=== PATIENT | female | born 1955 | race Caucasian/White ===

== ENCOUNTER → 2016-09-22 | Outpatient (CLI) | payer MEDICARE, MEDICAID ==
[~2016-09-22] MED LIST: CO Q400C2 PO; IBUP800T23 PO; MULTCAP9 PO; OMEG10002 PO; SIMV40TA2 PO; ST J1CAP PO; VITA500C24 PO
[2016-09-22 09:37] LABS: ALBUMIN 3.9 GM/DL (3.2-5.2); ALBUMIN/GLOBULIN RATIO 1.22 (1.00-1.93); ALKALINE PHOSPHATASE 62 U/L (45-117); ALT/SGPT 31 U/L (12-78); ANION GAP 9 MEQ/L (8-16); AST/SGOT 25 U/L (15-37); BILIRUBIN,TOTAL 0.4 MG/DL (0.2-1.0); BLOOD UREA NITROGEN 13 MG/DL (7-18); CALCIUM LEVEL 8.9 MG/DL (8.8-10.2); CARBON DIOXIDE LEVEL 27 MEQ/L (21-32); CHLORIDE LEVEL 105 MEQ/L (98-107); CHOLESTEROL LEVEL 218 MG/DL (<200); CREATININE FOR GFR 0.79 MG/DL (0.55-1.02); GLOMERULAR FILTRATION RATE > 60.0 (>45); GLUCOSE, FASTING 101 MG/DL (80-110); POTASSIUM SERUM 4.6 MEQ/L (3.5-5.1); SODIUM LEVEL 141 MEQ/L (136-145); TOTAL PROTEIN 7.1 GM/DL (6.4-8.2); TRIGLYCERIDES LEVEL 54 MG/DL (<150)
== END ==
LOC: M WUC 08:09
PROVIDERS: ATTEND Physician Assistant
DX: E78.2 Mixed hyperlipidemia (principal)

== ENCOUNTER → 2016-11-14 | Outpatient (CLI) | payer MEDICARE, MEDICAID ==
[~2016-11-14] MED LIST changes: +LIDOCAINE 2% INJ 100 MG/5 ML SDV (FOR ANES.) As Ordered ONE; +NS 1,000 ML IV SCH; +PROPOFOL 200 MG/20 ML VIAL As Ordered ONE
--- NOTE | 2016-11-14 11:26 | ROOR ---
Patient Name: Maira Ortiz Procedure Date: 11/14/2016 11:00 AM Date of : 1955 Age: 61 Room: [facility] Gender: Female Note Status: Finalized Procedure: Colonoscopy Indications: High risk colon cancer surveillance: Personal history of sessile serrated colon polyp (10 mm or greater in size) Providers: Gerardo BA MD Referring MD: DAVID Gurrola PA-C Requesting Provider: Medicines: Monitored Anesthesia Care Complications: No immediate complications. Procedure: Pre-Anesthesia Assessment: - The heart rate, respiratory rate, oxygen saturations, blood pressure, adequacy of pulmonary ventilation, and response to care were monitored throughout the procedure. The Colonoscope was introduced through the anus and advanced to the cecum, identified by appendiceal orifice and ileocecal valve. The colonoscopy was performed without difficulty. The patient tolerated the procedure well. The quality of the bowel preparation was good. Findings: The perianal and digital rectal examinations were normal. A 7 mm polyp was found in the proximal sigmoid colon. The polyp was pedunculated. The polyp was removed with a cold snare. Resection and retrieval were complete. To prevent bleeding after the polypectomy, four hemostatic clips were successfully placed (MR conditional). There was no bleeding at the end of the procedure. Multiple medium-mouthed diverticula were found in the sigmoid colon. Small Internal Hemorrhoids. The exam was otherwise without abnormality on direct and retroflexion views. (Exam: Complete, Prep: Good or Excellent.) Impression: - One 7 mm polyp in the proximal sigmoid colon, removed with a cold snare. Resected and retrieved. Clips (MR conditional) were placed. - Moderate diverticulosis in the sigmoid colon. - Small Internal Hemorrhoids. - The examination was otherwise normal on direct and retroflexion views. Recommendation: - Repeat colonoscopy in 3 years for surveillance. - No ibuprofen, naproxen, or other non-steroidal anti-inflammatory drugs for 10 days after polyp removal. Gerardo Ba MD Gerardo BA MD 11/14/2016 11:25:44 AM This report has been signed electronically. Number of Addenda: 0 Note Initiated On: 11/14/2016 11:00 AM Estimated Blood Loss: Estimated blood loss: none.
[2016-11-14 11:45] VITALS: BP 123/71
== END ==
LOC: M OPP 09:41
PROVIDERS: ATTEND Internal Medicine Gastroenterology
DX: Z12.11 Encounter for screening for malignant neoplasm of colon (principal); Z86.010 Personal history of colon polyps; D12.5 Benign neoplasm of sigmoid colon; K57.30 Diverticulosis of large intestine without perforation or abscess without bleeding; K64.8 Other hemorrhoids; M19.90 Unspecified osteoarthritis, unspecified site; Z79.899 Other long term (current) drug therapy; Z88.5 Allergy status to narcotic agent; Z91.030 Bee allergy status

== ENCOUNTER → 2017-06-02 | Outpatient (CLI) | payer MEDICARE, MEDICAID ==
[~2017-06-02] MED LIST changes: +IBUP1TAB7 PO; -IBUP800T23 PO; -LIDOCAINE 2% INJ 100 MG/5 ML SDV (FOR ANES.) As Ordered ONE; -NS 1,000 ML IV SCH; -PROPOFOL 200 MG/20 ML VIAL As Ordered ONE; -ST J1CAP PO; +ST J300C15 PO
[2017-06-02 10:26] LABS: ALBUMIN 3.9 GM/DL (3.2-5.2); ALBUMIN/GLOBULIN RATIO 1.15 (1.00-1.93); ALKALINE PHOSPHATASE 57 U/L (45-117); ALT/SGPT 31 U/L (12-78); ANION GAP 6 MEQ/L (8-16); AST/SGOT 18 U/L (7-37); BILIRUBIN,TOTAL 0.4 MG/DL (0.2-1.0); BLOOD UREA NITROGEN 14 MG/DL (7-18); CALCIUM LEVEL 9.1 MG/DL (8.8-10.2); CARBON DIOXIDE LEVEL 28 MEQ/L (21-32); CHLORIDE LEVEL 106 MEQ/L (98-107); CHOLESTEROL LEVEL 247 MG/DL (<200); CREATININE FOR GFR 0.66 MG/DL (0.55-1.02); GLOMERULAR FILTRATION RATE > 60.0 (>45); GLUCOSE, FASTING 100 MG/DL (80-110); POTASSIUM SERUM 4.3 MEQ/L (3.5-5.1); SODIUM LEVEL 140 MEQ/L (136-145); TOTAL PROTEIN 7.3 GM/DL (6.4-8.2); TRIGLYCERIDES LEVEL 51 MG/DL (<150)
== END ==
LOC: M WUC 08:31
PROVIDERS: ATTEND Physician Assistant
DX: E78.2 Mixed hyperlipidemia (principal)

== ENCOUNTER → 2017-12-22 | Outpatient (CLI) | payer MEDICARE, MEDICAID ==
[2017-12-22 11:26] LABS: ALBUMIN 3.9 GM/DL (3.2-5.2); ALBUMIN/GLOBULIN RATIO 1.26 (1.00-1.93); ALKALINE PHOSPHATASE 55 U/L (45-117); ALT/SGPT 26 U/L (12-78); ANION GAP 5 MEQ/L (8-16); AST/SGOT 20 U/L (7-37); BILIRUBIN,TOTAL 0.5 MG/DL (0.2-1.0); BLOOD UREA NITROGEN 14 MG/DL (7-18); CARBON DIOXIDE LEVEL 28 MEQ/L (21-32); CHLORIDE LEVEL 108 MEQ/L (98-107); CHOLESTEROL LEVEL 200 MG/DL (<200); CREATININE FOR GFR 0.73 MG/DL (0.55-1.30); GLOMERULAR FILTRATION RATE > 60.0 (>45); GLUCOSE, FASTING 95 MG/DL (70-100); HDL CHOLESTEROL 80 MG/DL (>40); LDL CHOLESTEROL 110.8 MG/DL (<100); NON-HDL-C 120 MG/DL; POTASSIUM SERUM 4.3 MEQ/L (3.5-5.1); SODIUM LEVEL 141 MEQ/L (136-145); TRIGLYCERIDES LEVEL 46 MG/DL (<150)
== END ==
LOC: M WUC 08:34
DX: E78.2 Mixed hyperlipidemia (principal)
CPT/HCPCS: 80053

== ENCOUNTER → 2018-06-27 | Outpatient (CLI) | payer MEDICARE, MEDICAID ==
[2018-06-27 09:53] LABS: ALBUMIN 3.9 GM/DL (3.2-5.2); ALBUMIN/GLOBULIN RATIO 1.26 (1.00-1.93); ALKALINE PHOSPHATASE 61 U/L (45-117); ALT/SGPT 30 U/L (12-78); ANION GAP 7 MEQ/L (8-16); AST/SGOT 25 U/L (7-37); BILIRUBIN,TOTAL 0.3 MG/DL (0.2-1.0); BLOOD UREA NITROGEN 8 MG/DL (7-18); CALCIUM LEVEL 9.2 MG/DL (8.8-10.2); CARBON DIOXIDE LEVEL 28 MEQ/L (21-32); CHLORIDE LEVEL 104 MEQ/L (98-107); CHOLESTEROL LEVEL 170 MG/DL (<200); CHOLESTEROL RISK RATIO 2.741 (<5); CREATININE FOR GFR 0.78 MG/DL (0.55-1.30); GLOMERULAR FILTRATION RATE > 60.0 (>45); GLUCOSE, FASTING 101 MG/DL (70-100); HDL CHOLESTEROL 62 MG/DL (>40); LDL CHOLESTEROL 94 MG/DL (<100); NON-HDL-C 108 MG/DL; POTASSIUM SERUM 4.2 MEQ/L (3.5-5.1); SODIUM LEVEL 139 MEQ/L (136-145); TRIGLYCERIDES LEVEL 69 MG/DL (<150)
== END ==
LOC: M WUC 08:34
DX: E78.2 Mixed hyperlipidemia (principal)
CPT/HCPCS: 80053

== ENCOUNTER → 2019-02-28 | Outpatient (REF) | payer MEDICARE, MEDICAID | LOC: M SFHCLACO 15:56 | PROVIDERS: ATTEND Physician Assistant | DX: Z12.4 Encounter for screening for malignant neoplasm of cervix (principal); N95.2 Postmenopausal atrophic vaginitis | CPT/HCPCS: 87070; 87077; 87186; G0101; G0123 ==

== ENCOUNTER → 2019-05-09 | Outpatient (CLI) | payer MEDICARE, MEDICAID ==
[2019-05-09 10:49] LABS: ALBUMIN 3.7 GM/DL (3.2-5.2); ALT/SGPT 23 U/L (12-78); BILIRUBIN,TOTAL 0.4 MG/DL (0.2-1.0); BLOOD UREA NITROGEN 10 MG/DL (7-18); CALCIUM LEVEL 9.2 MG/DL (8.8-10.2); CARBON DIOXIDE LEVEL 29 MEQ/L (21-32); CHLORIDE LEVEL 105 MEQ/L (98-107); CHOLESTEROL LEVEL 214 MG/DL (<200); CHOLESTEROL RISK RATIO 2.252 (<5); CREATININE FOR GFR 0.72 MG/DL (0.55-1.30); GLOMERULAR FILTRATION RATE > 60.0 (>45); GLUCOSE, FASTING 85 MG/DL (70-100); HDL CHOLESTEROL 95 MG/DL (>40); LDL CHOLESTEROL 106 MG/DL (<100); NON-HDL-C 119 MG/DL; POTASSIUM SERUM 4.7 MEQ/L (3.5-5.1); SODIUM LEVEL 138 MEQ/L (136-145); TOTAL PROTEIN 7.4 GM/DL (6.4-8.2); TRIGLYCERIDES LEVEL 66 MG/DL (<150)
== END ==
LOC: M WUC 08:19
PROVIDERS: ATTEND Physician Assistant
DX: E78.2 Mixed hyperlipidemia (principal)

== ENCOUNTER → 2019-05-17 | Outpatient (CLI) | payer MEDICARE, MEDICAID | LOC: M RAD 09:18 | PROVIDERS: ATTEND Physician Assistant | DX: M54.2 Cervicalgia (principal) ==

== ENCOUNTER → 2020-10-07 | Outpatient (REF) | payer MEDICARE, MEDICAID ==
[~2020-10-07] MED LIST changes: -SIMV40TA2 PO; +SIMV40TA20 PO
[2020-10-07 18:25] LABS: ALBUMIN 4.1 GM/DL (3.2-5.2); ALT/SGPT 28 U/L (12-78); BILIRUBIN,TOTAL 0.3 MG/DL (0.2-1.0); BLOOD UREA NITROGEN 12 MG/DL (7-18); CALCIUM LEVEL 9.4 MG/DL (8.8-10.2); CARBON DIOXIDE LEVEL 28 MEQ/L (21-32); CHLORIDE LEVEL 106 MEQ/L (98-107); CHOLESTEROL LEVEL 223 MG/DL (<200); CHOLESTEROL RISK RATIO 2.009 (<5); GLOMERULAR FILTRATION RATE > 60.0 (>45); GLUCOSE, FASTING 95 MG/DL (70-100); HDL CHOLESTEROL 111 MG/DL (>40); LDL CHOLESTEROL 103 MG/DL (<100); NON-HDL-C 112 MG/DL; POTASSIUM SERUM 4.6 MEQ/L (3.5-5.1); SODIUM LEVEL 140 MEQ/L (136-145); TOTAL PROTEIN 7.3 GM/DL (6.4-8.2); TRIGLYCERIDES LEVEL 47 MG/DL (<150)
== END ==
LOC: M SFHCADAM 09:43
PROVIDERS: ATTEND Physician Assistant
DX: Z00.00 Encounter for general adult medical examination without abnormal findings (principal); E78.2 Mixed hyperlipidemia; E55.9 Vitamin D deficiency, unspecified

== ENCOUNTER → 2021-02-15 | Outpatient (CLI) | payer MEDICARE, MEDICAID ==
[~2021-02-15] MED LIST changes: +ST J300C2 PO; +VITMTA PO; +collagen peptides PO
== END ==
LOC: M LABSMTC 10:43
PROVIDERS: ATTEND Anesthesiology
DX: Z01.812 Encounter for preprocedural laboratory examination (principal); Z20.822 Contact with and (suspected) exposure to COVID-19

== ENCOUNTER → 2021-04-19 | Outpatient (REF) | payer MEDICARE, MEDICAID ==
[2021-04-19 15:47] LABS: ALBUMIN 3.9 GM/DL (3.2-5.2); ALT/SGPT 27 U/L (12-78); BILIRUBIN,TOTAL 0.4 MG/DL (0.2-1.0); BLOOD UREA NITROGEN 13 MG/DL (7-18); CALCIUM LEVEL 9.8 MG/DL (8.8-10.2); CARBON DIOXIDE LEVEL 31 MEQ/L (21-32); CHLORIDE LEVEL 106 MEQ/L (98-107); CHOLESTEROL LEVEL 213 MG/DL (<200); CHOLESTEROL RISK RATIO 2.566 (<5); GLOMERULAR FILTRATION RATE > 60.0 (>45); GLUCOSE, FASTING 97 MG/DL (70-100); HDL CHOLESTEROL 83 MG/DL (>40); LDL CHOLESTEROL 112 MG/DL (<100); NON-HDL-C 130 MG/DL; POTASSIUM SERUM 4.6 MEQ/L (3.5-5.1); SODIUM LEVEL 140 MEQ/L (136-145); TOTAL 25(OH) VITAMIN D 71.8 NG/ML (30.0-100.0); TOTAL PROTEIN 7.4 GM/DL (6.4-8.2); TRIGLYCERIDES LEVEL 92 MG/DL (<150)
== END ==
LOC: M SFHCADAM 10:41
PROVIDERS: ATTEND Physician Assistant
DX: Z00.00 Encounter for general adult medical examination without abnormal findings (principal); E78.2 Mixed hyperlipidemia; E55.9 Vitamin D deficiency, unspecified; Z79.899 Other long term (current) drug therapy
CPT/HCPCS: 80053; 80061; 82306; G0463

== ENCOUNTER → 2021-05-10 | Outpatient (CLI) | payer MEDICARE, MEDICAID | LOC: M LABSMTC 08:57 | PROVIDERS: ATTEND Anesthesiology | DX: Z01.812 Encounter for preprocedural laboratory examination (principal); Z20.822 Contact with and (suspected) exposure to COVID-19 ==

== ENCOUNTER 2021-05-14 08:12 | Day surgery (SDC) | payer MEDICARE, MEDICAID ==
[~2021-05-14] VITALS: Ht 157.5 cm; Wt 68.9 kg
[~2021-05-14 08:12] MED LIST changes: +NS 1,000 ML IV ONE
--- OUTSIDE RECORDS SUMMARY | 2021-05-14 08:15 | CCD ---
Author Author [employer] Organization [employer] Address Unknown Phone Unavailable Care Team Providers Care Transformation Specialist Name Role Phone Katja Fernández Unavailable PROBLEMS Type Condition ICD9-CM Code UKP62-PT Code Onset Dates Condition S tatus W/U Status Risk SNOMED Code Notes Problem Female climacteric state N95.1 Active confirmed 914801226 Problem Menopausal and female climacteric states N95.1 Active confirmed 006286910 Problem Mixed hyperlipidemia E78.2 Active confirmed 901202860 Well controlled on current regimen of simvastatin 40 mg and fish oil, no medication changes have been made Problem Generalized osteoarthrosis, involving multiple sites M15.9 Active confirmed 896589227 Well controlled on c urrent regimen of ibuprofen and CBD oil as needed Problem Symptomatic menopausal or female climacteric states N95.1 Active confirmed 25395432 Problem Vitamin D deficiency E55.9 Active confirmed 93436615 stable ALLERGIES Allergen (clinical drug ingredient) Drug/Non Drug Allergy do cumented on EMR Reaction Allergy Type Onset Date Status codeine Codeine Sulfate([facility] Code:[address]-48) hives, sleepy Drug Allergy Active Darvocet-N 100 nausea, spacey Drug Allergy Acti ve bees hives, swelling Non Drug Allergy Act brodie ENCOUNTERS from 1955 to 2021-04-25 Encounter Location Date Provider Diagnosis [address] [place] [address] Mar, Katja Fernández Mixed hyperlipidemia E78.2 ; Generalized osteoarthrosis, involving multiple sites M15.9 ; Cervicalgia M54.2 ; Pain of occiput R51 ; Vitamin D deficiency E55.9 ; Other screening mammogram Z12.31 ; Menopausal and female climacteric states N95.1 and Preventative health care Z00.00 IMMUNIZATIONS Vaccine Route Administration Date Status TDAP 0.5mL (Boostrix) IM Intramuscular May 02, 2011 Administe red Influenza 6mo & up Fluzone IM Intramuscular May 23, 2011 Admi nistered SOCIAL HISTORY Tobacco Use: Social History Observation Description Date Details (start date - stop date) Former Smoker Sex Assigned At : Social History Observation Description Sex Assigned At Unknown Education: Question Answer Notes Level of Education: Finished High School Audit Question Answer Notes Total Score: 1 Interpretation: Alcohol Education Language: Question Answer Notes Languages spoken: Azeri Sikh: Question Answer Notes Sikh No temple beliefs that would impact health care. Drug and Alcohol Question Answer Notes Total Score: 0 Interpretation: No problems reported BMI Care Goal Follow-Up Question Answer Notes Above Normal BMI Follow-Up at goal Tobacco Use: Question Answer Notes Are you a: former smoker How long has it been since you last smoked? 5-10 years REASON FOR REFERRAL No Information VITAL SIGNS Weight 159 lbs Mar, Height 62 in Mar, BMI 29.08 kg/m2 Mar, Heart Rate 82 /min Mar, Respiratory Rate 18 /min Mar, Temperature 98 degrees Fahrenheit Mar, Oximetry 97 Mar, Blood pressure systolic 118 mm Hg Mar, Blood pressure diastolic 62 mm Hg Mar, MEDICATIONS Medication SIG (Take, Route, Frequency, Duration) Notes Start Da te End Date Status EpiPen 0.3 MG/0.3ML as directed Injection as needed for bee sting for 30 days Feb, Active May Have - as directed topically Daily Active Ibuprofen 800 1 tablet with food or milk a s needed Orally 3 times a day for 90 days Active Simvastatin 40 MG 1 tablet in the evening Orally Once a day for [address] Dugan Wort 300 MG 1 capsule Orally up to twice a day for 30 day(s) Active Amity 3 1000 mg 2 capsules Orally Twice a day for 90 days Active Glucosamine Chondr 500 Complex - Orally Active Vitamin C 1000 MG 1 tablet Orally bid Active Co Q-10 30 MG as directed Orally Once a day Active Multivitamins 1 capsule Orally Once a day Active PROCEDURES No Information RESULTS Component Value Reference Range Comprehensive Metabolic Profile (CMP) Reviewed date:04/25/2021 18:21:07 Interpretation: Performing Lab:[facility] [address] [place] [id number] , ,[facility]01 GLUCOSE, FASTING 97 70-100 BLOOD UREA NITROGEN 13 7-18 CREATININE FOR GFR 0.70 0.55-1.30 GLOMERULAR FILTRATION RATE > 60.0 >45 SODIUM LEVEL 140 136-145 POTASSIUM SERUM 4.6 3.5-5.1 CHLORIDE LEVEL 106 98-107 CARBON DIOXIDE LEVEL 31 21-32 CALCIUM LEVEL 9.8 8.8-10.2 AST/SGOT 18 7-37 ALT/SGPT 27 12-78 ALKALINE PHOSPHATASE 60 45-117 BILIRUBIN,TOTAL 0.4 0.2-1.0 TOTAL PROTEIN 7.4 6.4-8.2 ALBUMIN 3.9 3.2-5.2 ALBUMIN/GLOBULIN RATIO 1.1 1.2-2.2 LIPID PANEL (CARDIAC RISK) Reviewed date:04/25/2021 18:24:58 Interpretation: Performing Lab:[facility] [address] [facility] [address] , ,[facility]01 TRIGLYCERIDES LEVEL 92 <150 CHOLESTEROL LEVEL 213 <200 HDL CHOLESTEROL 83 >40 LDL CHOLESTEROL 112 <100 NON-HDL-C 130 CHOLESTEROL RISK RATIO 2.566 <5 VITAMIN D 25-HYDROXY Reviewed date:04/25/2021 18:21:21 Interpretation: Performing Lab:[facility] [address] [facility] [address] , ,[facility]01 TOTAL 25(OH) VITAMIN D 71.8 30.0-100.0 REASON FOR VISIT lipids MEDICAL (GENERAL) HISTORY Type Description Date Medical History hyperlipidemia Medical History osteoarthritis Medical History menopause Surgical History tubal ligation Surgical History hemorrhoidectomy Surgical History colonoscopy 05/2013 Hospitalization History surgeries as above Goals Section No Information Health Concerns No Information MEDICAL EQUIPMENT No Information MENTAL STATUS No Information FUNCTIONAL STATUS No Information ASSESSMENTS Encounter Date Diagnosis Assessment Notes Treatment Notes Treatm ent Clinical Notes Mar, Mixed hyperlipidemia (ICD-10 - E78.2) We ll controlled on current regimen of simvastatin 40 mg and fish oil, no medication changes have been made Mar, Generalized osteoarthrosis, involving multiple sites (ICD-10 - M15.9) Well controlled on current regimen of ibuprofen and CB D oil as needed Mar, Cervicalgia (ICD-10 - M54.2) Stable Mar, Pain of occiput (ICD-10 - R51) Stable Mar, Vitamin D deficiency (ICD-10 - E55.9) stable Mar, Other screening mammogram (ICD-10 - Z12.31) Mar, Menopausal and female climacteric states (ICD-10 - N95.1) Mar, Preventative health care (ICD-10 - Z00.0 0) Up-to-date on blood work and colonoscopy. We have done a clinical breast exam today and I have given her an order for a mammogram PLAN OF TREATMENT Future Test Test Name Order Date Comprehensive Metabolic Profile (CMP) 20211004 LIPID PANEL (CARDIAC RISK) 20211004 VITAMIN D 25-HYDROXY 20211004 Next Appt Details 6 Months, 30 min Reason:lipids, etc. Provider Name:Katja Fernández, 2021-09-2 8 10:00:00 AM, [address], , [place], [address], Follow Up:6 Months, 30 minlipids, etc. Insurance Providers Payer Name Payer Address Payer Phone Insured Name Patient Relati onship to Insured Coverage Start Date Coverage End Date MEDICARE Part A and B [address] [facility] [address] LARY MARCELO self MEDICAID [employer] [address] [facility] [id number] LARY MARCELO self
--- OUTSIDE RECORDS SUMMARY | 2021-05-14 08:15 | CCD ---
Author Author [facility] Organization [facility] Address Unknown Phone Unavailable Support Name Relationship Address Phone [employer] Next Of Kin [address] [place] [address] [employer] Next Of Kin [address] [place] [address] LAURARenata RICH Next Of Kin [address] [place] [address] HARITHA BERRY Next Of Kin [address] [place] [address] Rich Rey [employer] [facility] [facility] [address] [place] [id number] Unavailable Re-disclosure Warning The records that you are about to access may contain information from federally-assisted alcohol or drug abuse programs. If such information is present, then the following federally mandated warning applies: This information has been disclosed to you from records protected by federal confidentiality rules (42 CFR part 2). The federal rules prohibit you from making any further disclosure of this information unless further disclosure is expressly permitted by the written consent of the person to whom it pertains or as otherwise permitted by 42 CFR part 2. A general authorization for the release of medical or other information is NOT sufficient for this purpose. The Federal rules restrict any use of the information to criminally investigate or prosecute any alcohol or drug abuse patient.The records that you are about to access may contain highly sensitive health information, the redisclosure of which is protected by Article 27-F of the [facility] Public Health law. If you continue you may have access to information: Regarding HIV / AIDS; Provided by facilities licensed or operated by the [facility] Office of Mental Health; or Provided by the [facility] Office for People With Developmental Disabilities. If such information is present, then the following [facility] mandated warning applies: This information has been disclosed to you from confidential records which are protected by state law. State law prohibits you from making any further disclosure of this information without the specific written consent of the person to whom it pertains, or as otherwise permitted by law. Any unauthorized further disclosure in violation of state law may result in a fine or correction sentence or both. A general authorization for the release of medical or other information is NOT sufficient authorization for further disc losure. Family History Family Member Name Family Member Gender Family Member Status Date o f Status Description Data Source(s) Unknown Unknown Problem MEDENT ([facility]) Unknown Unknown Problem [facility] Unknown Unknown Problem MEDENT ([facility] ) Unknown Unknown Problem MEDENT ([facility], ) Unknown Unknown Problem MEDENT ([facility], ) Unknown Unknown Problem MEDENT ([facility], ) sister Dx 28 Encounters Encounter Providers Location Date Indications Data Source(s ) Outpatient [address] [facility] [place] [address] 04/19/2021 12:00:00 AM EDT eCW1 ([facility]) Unknown [address] [facility] [address] 02/19/2021 12:00:00 AM EDT eCW1 ([facility]) Unknown [address] [facility] [address] 12/18/2020 12:00:00 AM EDT eCW1 ([facility]) Unknown [address] [facility] [place] [address] 12/14/2020 12:00:00 AM EDT eCW1 ([facility]) Unknown [address] [facility] [place] [address] 11/09/2020 12:00:00 AM EDT eCW1 ([facility]) Outpatient [address] [facility] [place] [address] 10/12/2020 12:00:00 AM EDT eCW1 ([facility]) Unknown [address] [facility] [place] [address] 06/16/2020 12:00:00 AM EST eCW1 ([facility]) Medications Medication Brand Name Start Date Product Form Dose Route Admi nistrative Instructions Pharmacy Instructions Status Indications Reaction Description Data Source(s) Bisacodyl 5 MG Delayed Release Oral Tablet [Dulcolax] Dulcol ax 11/23/2020 12:00:00 AM EDT ORAL active M EDENT ([facility], ) Sutab Sutab 11/23/2020 12:00:00 AM EDT active MEDENT ([facility]) Insurance Providers Payer name Policy type / Coverage type Policy ID Covered democrat ID Covered democrat's relationship to baez Policy Baez Plan Information MEDICARE [id number] SP [id number] [id number] SP [id number] U MEDICARE [id number] SP [id number] WELLCARE [id number] SP [id number] WELLCARE [id number] SP [id number] [place] [id number] SP [id number] MEDICAID [id number] SP [id number] [facility] [id number] [facility] [id number] [facility] [id number] ANSI-Medicare Part B [id number] [facility] [id number] ANSI-Medicare Part B [id number] ANSI-Medicare Part B [id number] ANSI-Medicaid [id number] ANSI-Medicaid [id number] ANSI-Medicare Part B [id number] ANSI-Medicaid [id number] ANSI-Medicare Part B [id number] MEDICARE [id number] SP [id number] A ANSI-Medicare Part B [id number] ANSI-Medicaid [id number] ANSI-Medicaid [id number] ANSI-Medicare Part B [id number] Medicaid [place] Medigap Part B [id number] Self [id number] Medicare Up[place] Medicare Primary [id number] Self [id number] Medicare Natl Gov't Servi Medicare Primary [id number] Self Medicaid [place] Medigap Part B [id number] Self Medicare Upstate/[facility] Medicare Primary [id number] Self [id number] [facility] [id number] A Problems, Conditions, and Diagnoses No Information Surgeries/Procedures No Information Results ID Date Data Source VITAMIN D 25-HYDROXY 04/19/2021 12:00:00 AM EDT eCW1 ([facility]) Name Value Range Interpretation Code Description Data Zoey rce(s) Supporting Document(s) 71.8 30.0-100.0 TOTAL 25(OH) VITAMIN D eC W1 ([facility]) ID Date Data Source LIPID PANEL (CARDIAC RISK) 04/19/2021 12:00:00 AM EDT eCW1 ( [facility]) Name Value Range Interpretation Code Description Data Zoey rce(s) Supporting Document(s) Cholesterol [Moles/volume] in Serum or Plasma 213 <200 CHOLESTEROL LEVEL eCW1 ([facility]) Cholesterol in LDL [Mass/volume] in Serum or Plasma by calculation 112 <100 LDL CHOLESTEROL eCW1 ([facility]) Cholesterol in HDL [Moles/volume] in Serum or Plasma 83 >40 HDL CHOLESTEROL eCW1 ([facility]) Triglyceride [Mass/volume] in Serum or Plasma by calculation 92 <150 TRIGLYCERIDES LEVEL eCW1 ([facility]) 130 NON-HDL-C eCW1 ([facility]) 2.566 <5 CHOLESTEROL RISK RATIO eCW1 ([facility]) ID Date Data Source Comprehensive Metabolic Profile (CMP) 04/19/2021 12:00:00 AM EDT eCW1 ([facility]) Name Value Range Interpretation Code Description Data Zoey rce(s) Supporting Document(s) 13 7-18 BLOOD UREA NITROGEN eCW1 ([facility]) 97 70-100 GLUCOSE, FASTING eCW1 ([facility]) 4.6 3.5-5.1 POTASSIUM SERUM eCW1 ([facility]) 0.70 0.55-1.30 CREATININE FOR GFR eCW1 ([facility]) > 60.0 >45 GLOMERULAR FILTRATION RATE eCW 1 ([facility]) 140 136-145 SODIUM LEVEL eCW1 ([facility]) 18 7-37 AST/SGOT eCW1 ([facility]) 9.8 8.8-10.2 CALCIUM LEVEL eCW1 ([facility]) 31 21-32 CARBON DIOXIDE LEVEL eCW1 ([facility]) 106 98-107 CHLORIDE LEVEL eCW1 ([facility]) 0.4 0.2-1.0 BILIRUBIN,TOTAL eCW1 ([facility]) 27 12-78 ALT/SGPT eCW1 ([facility]) 60 45-117 ALKALINE PHOSPHATASE eCW1 ([facility]) 7.4 6.4-8.2 TOTAL PROTEIN eCW1 ([facility]) 1.1 1.2-2.2 ALBUMIN/GLOBULIN RATIO eCW1 ([facility]) 3.9 3.2-5.2 ALBUMIN eCW1 ([facility]) ID Date Data Source [id number] 02/15/2021 10:45:00 AM EDT [facility] Name Value Range Interpretation Code Description Data Zoey rce(s) Supporting Document(s) SARS-CoV-2 (COVID-19) RNA [Presence] in Respiratory specimen by VLADIMIR with probe detection Positive for 2019-nCoV [facility] This lab was ordered by [facility] and reported by [facility]. Procedure Social History Code Duration Value Status Description Data Source(s ) Smoking 04/25/2021 12:00:00 AM EDT Former Smoker completed Former Smoker eCW1 ([facility]) Smoking 10/12/2020 12:00:00 AM EDT Former Smoker completed Former Smoker eCW1 ([facility]) Smoking 10/12/2020 12:00:00 AM EDT Former Smoker completed Former Smoker eCW1 ([facility]) Smoking 10/12/2020 12:00:00 AM EDT Former Smoker completed Former Smoker eCW1 ([facility]) Smoking 10/12/2020 12:00:00 AM EDT Former Smoker completed Former Smoker eCW1 ([facility]) Smoking 10/12/2020 12:00:00 AM EDT Former Smoker completed Former Smoker eCW1 ([facility]) Vital Signs ID Date Data Source UNK Name Value Range Interpretation Code Description Data Source(s) Body weight 159 [lb_av] 159 [lb_av] eCW1 ([facility]) Body height 62 [in_i] 62 [in_i] eCW1 ([facility]) Body mass index (BMI) [Ratio] 29.08 kg/m2 29.08 kg/m2 eCW1 ([facility]) Heart rate 82 /min 82 /min eCW1 ([facility]) Respiratory rate 18 /min 18 /min eCW1 ([facility]) Body temperature 98 [degF] 98 [degF] eCW1 ([facility]) Systolic blood pressure 118 mm[Hg] 118 mm[Hg] e CW1 ([facility]) Diastolic blood pressure 62 mm[Hg] 62 mm[Hg] eCW1 ([facility]) Systolic blood pressure 142 mm[Hg] 142 mm[Hg] M EDENT ([facility], ) Diastolic blood pressure 76 mm[Hg] 76 mm[Hg] MEDENT ([facility], ) Body height 62.5 [in_i] 62.5 [in_i] MEDENT ([facility], ) 5'2.50" Body weight 163.00 [lb_av] 163.00 [lb_av] MEDEN T ([facility]) Body mass index (BMI) [Ratio] 29.3 kg/m2 29.3 k g/m2 [facility] ([facility]) [place] body weight 110 [lb_av] 110 [lb_av] MEDEN T ([facility]) Body weight 73.937 kg 73.937 kg [facility] ([facility]) Body surface area Derived from formula 1.76 m2 1.76 m2 [facility] ([facility]) Body weight 163.2 [lb_av] 163.2 [lb_av] eCW1 ([facility]) Body height 62 [in_i] 62 [in_i] eCW1 ([facility]) Body mass index (BMI) [Ratio] 29.85 kg/m2 29.85 kg/m2 eCW1 ([facility]) Heart rate 80 /min 80 /min eCW1 ([facility]) Respiratory rate 16 /min 16 /min eCW1 ([facility]) Body temperature 97.4 [degF] 97.4 [degF] eCW1 ( [facility]) Systolic blood pressure 118 mm[Hg] 118 mm[Hg] e CW1 ([facility]) Diastolic blood pressure 78 mm[Hg] 78 mm[Hg] eCW1 ([facility])
--- OUTSIDE RECORDS SUMMARY | 2021-05-14 08:15 | CCD ---
Author Author [employer] [facility] Organization [employer] [facility] Address Unknown Phone Unavailable Care Team Providers Care Director [facility] Name Role Phone Katja Fernández Unavailable PROBLEMS ALLERGIES ENCOUNTERS from 1955 to 2021-02-20 IMMUNIZATIONS SOCIAL HISTORY REASON FOR REFERRAL No Information VITAL SIGNS MEDICATIONS PROCEDURES No Information RESULTS No Results REASON FOR VISIT MEDICAL (GENERAL) HISTORY Goals Section Health Concerns MEDICAL EQUIPMENT No Information MENTAL STATUS FUNCTIONAL STATUS ASSESSMENTS No Information PLAN OF TREATMENT Insurance Providers
[2021-05-14] MEDS ORDERED: ePHEDrine SULFATE 25 MG/5 ML(5MG/ML) SYRINGE As Ordered ONE (09:19)
[2021-05-14] MEDS ORDERED: LIDOCAINE 2% 100MG/5ML SDV (FOR ANES.) As Ordered ONE (09:19)
[2021-05-14] MEDS ORDERED: propofoL 200 MG/20 ML VIAL As Ordered ONE (09:19)
[2021-05-14] MEDS ORDERED: PHENYLephrine 500MCG 5ML (100MCG/ML) SYRINGE As Ordered ONE (09:20)
--- NOTE | 2021-05-14 09:31 | ROOR ---
Patient Name: Maira Ortiz Procedure Date: 05/14/2021 8:55 AM Date of : 1955 Age: 65 Room: [facility] Gender: Female Note Status: Finalized Procedure: Colonoscopy Indications: High risk colon cancer surveillance: Personal history of colonic polyps, Last colonoscopy: October 2016 Providers: Gerardo Ba MD Referring MD: DAVID Gurrola PA-C Requesting Provider: Medicines: Monitored Anesthesia Care Complications: No immediate complications. Procedure: Pre-Anesthesia Assessment: - The heart rate, respiratory rate, oxygen saturations, blood pressure, adequacy of pulmonary ventilation, and response to care were monitored throughout the procedure. The Colonoscope was introduced through the anus and advanced to the cecum, identified by appendiceal orifice and ileocecal valve. The colonoscopy was performed without difficulty. The patient tolerated the procedure well. The quality of the bowel preparation was good. Findings: The perianal and digital rectal examinations were normal. The sigmoid colon was redundant. A 5 mm polyp was found in the proximal sigmoid colon. The polyp was white, sessile. (suspect fibrous tissue from previous tubulovillous adenoma polypectomy site). The polyp was removed with a cold snare. Resection and retrieval were complete. Multiple medium-mouthed diverticula were found in the sigmoid colon. The exam was otherwise without abnormality on direct and retroflexion views. Impression: - One 5 mm polyp in the proximal sigmoid colon, removed with a cold snare. Resected and retrieved. - Diverticulosis in the sigmoid colon. - The examination was otherwise normal on direct and retroflexion views. Recommendation: - Repeat colonoscopy in 5 years for surveillance. Procedure Code(s): --- Professional --- 33563, Colonoscopy, flexible; with removal of tumor(s), polyp(s), or other lesion(s) by snare technique Diagnosis Code(s): --- Professional --- Q43.8, Other specified congenital malformations of intestine K57.30, Diverticulosis of large intestine without perforation or abscess without bleeding K63.5, Polyp of colon Z86.010, Personal history of colonic polyps CPT copyright 2019 [employer]. All rights reserved. The codes documented in this report are preliminary and upon geothermal operations engineer review may be revised to meet current compliance requirements. Gerardo Ba MD Gerardo Ba MD 05/14/2021 9:30:40 AM Electronically signed by Gerardo Ba MD Number of Addenda: 0 Note Initiated On: 05/14/2021 8:55 AM Estimated Blood Loss: Estimated blood loss: none.
[2021-05-14 09:55] VITALS: BP 124/75
== END 2021-05-14 10:09 | disposition home or self-care (01) ==
LOC: M OPP 08:12
PROVIDERS: ATTEND Internal Medicine Gastroenterology
DX: Z12.11 Encounter for screening for malignant neoplasm of colon (principal); Z86.010 Personal history of colon polyps; K63.5 Polyp of colon; K57.30 Diverticulosis of large intestine without perforation or abscess without bleeding; Z88.5 Allergy status to narcotic agent; Z91.030 Bee allergy status
CPT/HCPCS: 45385; 88305; J2370

== ENCOUNTER → 2021-11-12 | Outpatient (CLI) | payer MEDICARE, MEDICAID ==
[~2021-11-12] MED LIST changes: -NS 1,000 ML IV ONE
[2021-11-12 10:15] LABS: ALBUMIN 3.8 GM/DL (3.2-5.2); ALT/SGPT 24 U/L (12-78); BILIRUBIN,TOTAL 0.3 MG/DL (0.2-1.0); BLOOD UREA NITROGEN 11 MG/DL (7-18); CALCIUM LEVEL 9.3 MG/DL (8.8-10.2); CARBON DIOXIDE LEVEL 25 MEQ/L (21-32); CHLORIDE LEVEL 109 MEQ/L (98-107); CHOLESTEROL LEVEL 207 MG/DL (<200); CREATININE FOR GFR 0.69 MG/DL (0.55-1.30); GLOMERULAR FILTRATION RATE > 60.0 (>45); GLUCOSE, FASTING 95 MG/DL (70-100); HDL CHOLESTEROL 79 MG/DL (>40); LDL CHOLESTEROL 116 MG/DL (<100); NON-HDL-C 128 MG/DL; POTASSIUM SERUM 4.4 MEQ/L (3.5-5.1); SODIUM LEVEL 141 MEQ/L (136-145); TOTAL PROTEIN 6.9 GM/DL (6.4-8.2); TRIGLYCERIDES LEVEL 60 MG/DL (<150)
[2021-11-12 10:23] LABS: TOTAL 25(OH) VITAMIN D 59.3 NG/ML (30.0-100.0)
== END ==
LOC: M WUC 08:26
PROVIDERS: ATTEND Physician Assistant
DX: Z00.00 Encounter for general adult medical examination without abnormal findings (principal); E55.9 Vitamin D deficiency, unspecified; E78.2 Mixed hyperlipidemia; Z79.899 Other long term (current) drug therapy

== ENCOUNTER → 2022-09-14 | Outpatient (CLI) | payer MEDICARE, MEDICAID ==
[~2022-09-14] MED LIST changes: -CO Q400C2 PO; +CVS400CA10 PO
[2022-09-14 12:32] LABS: BASO % 0.6 % (0.0-1.0); EOS # 0.2 10^3/uL (0.0-0.5); EOS % 3.2 % (0.0-3.0); HEMATOCRIT 35.9 % (36.0-47.0); HEMOGLOBIN 11.7 g/dl (12.0-15.5); LYMPH % 31.8 % (24.0-44.0); MEAN CORPUSCULAR HEMOGLOBIN 29.3 pg (27.0-33.0); MEAN CORPUSCULAR HGB CONC 32.6 g/dl (32.0-36.5); MEAN CORPUSCULAR VOLUME 89.8 fl (80.0-96.0); MONO # 0.5 10^3/uL (0.0-0.8); MONO % 8.6 % (2.0-8.0); NEUTROPHILS # 3.5 10^3/uL (1.5-8.5); NEUTROPHILS % 55.5 % (36.0-66.0); PLATELET COUNT, AUTOMATED 334 10^3/uL (150-450); WHITE BLOOD COUNT 6.3 10^3/uL (4.0-10.0)
[2022-09-14 13:03] LABS: ALBUMIN 3.7 G/DL (3.2-5.2); ALKALINE PHOSPHATASE 58 U/L (46-116); ALT/SGPT 24 U/L (7.0-40); AST/SGOT 26 U/L (<34); BILIRUBIN,TOTAL 0.4 MG/DL (0.3-1.2); BLOOD UREA NITROGEN 13 MG/DL (9-23); CALCIUM LEVEL 9.5 MG/DL (8.3-10.6); CARBON DIOXIDE LEVEL 25 MMOL/L (20-31); CHLORIDE LEVEL 106 MMOL/L (98-107); CHOLESTEROL LEVEL 169 MG/DL (<200); CHOLESTEROL RISK RATIO 2.23 (<5); CREATININE FOR GFR 0.68 MG/DL (0.55-1.30); GLOMERULAR FILTRATION RATE > 60.0 (>45); GLUCOSE, FASTING 94 MG/DL (74-106); HDL CHOLESTEROL 75.5 MG/DL (>40); NON-HDL-C 94 MG/DL; POTASSIUM SERUM 4.2 MMOL/L (3.5-5.1); SODIUM LEVEL 139 MMOL/L (136-145); THYROID STIMULATING HORMONE 1.808 uIU/ML (0.55-4.78); TOTAL 25(OH) VITAMIN D 42.1 NG/ML (20.0-100.0)
[2022-09-14 18:40] LABS: LDL CHOLESTEROL 81.1 MG/DL (<100); TOTAL PROTEIN 6.6 G/DL (5.7-8.2); TRIGLYCERIDES LEVEL 62 MG/DL (<150)
== END ==
LOC: M WUC 08:35
PROVIDERS: ATTEND Physician Assistant
DX: E78.2 Mixed hyperlipidemia (principal); E55.9 Vitamin D deficiency, unspecified; Z79.899 Other long term (current) drug therapy

== ENCOUNTER → 2022-09-23 | Outpatient (CLI) | payer MEDICARE, MEDICAID | LOC: M WHC 08:57 | PROVIDERS: ATTEND Physician Assistant | DX: Z12.31 Encounter for screening mammogram for malignant neoplasm of breast (principal); Z13.820 Encounter for screening for osteoporosis; M85.851 Other specified disorders of bone density and structure, right thigh; M85.852 Other specified disorders of bone density and structure, left thigh ==

== ENCOUNTER → 2022-10-12 | Outpatient (CLI) | payer MEDICARE, MEDICAID | LOC: M WHC 10:04 | PROVIDERS: ATTEND Physician Assistant | DX: Z12.31 Encounter for screening mammogram for malignant neoplasm of breast (principal) | CPT/HCPCS: 77065; G0279 ==

== ENCOUNTER → 2023-02-06 | Outpatient (CLI) | payer MEDICARE, MEDICAID | LOC: M ADAMS 11:16 | PROVIDERS: ATTEND Physician Assistant | DX: M17.12 Unilateral primary osteoarthritis, left knee (principal); M25.552 Pain in left hip ==

== ENCOUNTER → 2023-09-14 | Outpatient (CLI) | payer MEDICARE, MEDICAID ==
[2023-09-14 12:13] LABS: BASO % 0.7 % (0.0-1.0); EOS # 0.2 10^3/uL (0.0-0.5); EOS % 3.1 % (0.0-3.0); HEMATOCRIT 38.1 % (36.0-47.0); HEMOGLOBIN 12.5 g/dl (12.0-15.5); LYMPH # 2.1 10^3/uL (1.5-5.0); MEAN CORPUSCULAR HGB CONC 32.8 g/dl (32.0-36.5); MEAN CORPUSCULAR VOLUME 88.4 fl (80.0-96.0); MONO # 0.5 10^3/uL (0.0-0.8); NEUTROPHILS # 3.1 10^3/uL (1.5-8.5); PLATELET COUNT, AUTOMATED 331 10^3/uL (150-450); RED BLOOD COUNT 4.31 10^6/uL (4.00-5.40); WHITE BLOOD COUNT 5.9 10^3/uL (4.0-10.0)
[2023-09-14 12:31] LABS: IRON (FE) 48 UG/DL (50-170)
[2023-09-14 12:32] LABS: PERCENT SATURATION 14.1 % (13.2-45.0); TOTAL 25(OH) VITAMIN D 49.8 NG/ML (20.0-100.0); TOTAL IRON BINDING CAPACITY 340 UG/DL (250-425)
[2023-09-14 12:34] LABS: FOLATE > 24.00 NG/ML (>5.4); VITAMIN B12 LEVEL 1239 PG/ML (211-911)
== END ==
LOC: M WUC 08:17
PROVIDERS: ATTEND Physician Assistant
DX: E55.9 Vitamin D deficiency, unspecified (principal); D64.9 Anemia, unspecified

== ENCOUNTER → 2024-09-23 | Outpatient (REF) | payer MEDICARE, MEDICAID ==
[2024-09-23 18:17] LABS: CHOLESTEROL RISK RATIO 3.6 (<5); HDL CHOLESTEROL 81.8 MG/DL (>40); LDL CHOLESTEROL 197.4 MG/DL (<100); NON-HDL-C 213.2 MG/DL
== END ==
LOC: M SFHCADAM 11:34
PROVIDERS: ATTEND Physician Assistant
DX: E78.2 Mixed hyperlipidemia (principal)

== ENCOUNTER → 2024-10-09 | Outpatient (REF) | payer MEDICARE, MEDICAID ==
[2024-10-09 15:03] LABS: BASO % 0.6 % (0.0-1.0); EOS # 0.1 10^3/uL (0.0-0.5); EOS % 1.8 % (0.0-3.0); HEMATOCRIT 39.5 % (36.0-47.0); LYMPH # 2.3 10^3/uL (1.5-5.0); LYMPH % 31.2 % (24.0-44.0); MEAN CORPUSCULAR HEMOGLOBIN 28.4 pg (27.0-33.0); MEAN CORPUSCULAR HGB CONC 32.9 g/dl (32.0-36.5); MEAN CORPUSCULAR VOLUME 86.4 fl (80.0-96.0); MONO # 0.6 10^3/uL (0.0-0.8); MONO % 7.7 % (2.0-8.0); NEUTROPHILS # 4.3 10^3/uL (1.5-8.5); NEUTROPHILS % 58.6 % (36.0-66.0); PLATELET COUNT, AUTOMATED 378 10^3/uL (150-450); RED BLOOD COUNT 4.57 10^6/uL (4.00-5.40); WHITE BLOOD COUNT 7.3 10^3/uL (4.0-10.0)
[2024-10-09 15:43] LABS: HEMOGLOBIN A1c 5.2 % (4.0-6.0)
[2024-10-09 15:48] LABS: ALBUMIN 4.1 G/DL (3.2-5.2); ALKALINE PHOSPHATASE 68 U/L (35-104); ALT/SGPT 23 U/L (7.0-40); AST/SGOT 19 U/L (<34); BILIRUBIN,TOTAL 0.5 MG/DL (0.3-1.2); BLOOD UREA NITROGEN 14 MG/DL (9-23); CALCIUM LEVEL 10.2 MG/DL (8.3-10.6); CARBON DIOXIDE LEVEL 26 MMOL/L (20-31); CHLORIDE LEVEL 103 MMOL/L (98-107); CREATININE FOR GFR 0.84 MG/DL (0.55-1.30); GLOMERULAR FILTRATION RATE > 60.0 (>45); GLUCOSE, FASTING 95 MG/DL (74-106); POTASSIUM SERUM 4.4 MMOL/L (3.5-5.1); SODIUM LEVEL 137 MMOL/L (136-145); TOTAL PROTEIN 7.6 G/DL (5.7-8.2)
[2024-10-09 15:50] LABS: FREE T4 1.16 NG/DL (0.89-1.76); THYROID STIMULATING HORMONE 1.285 uIU/ML (0.55-4.78); TOTAL 25(OH) VITAMIN D 51.5 NG/ML (20.0-100.0)
== END ==
LOC: M LABWUC 14:17
PROVIDERS: ATTEND Physician Assistant
DX: Z00.00 Encounter for general adult medical examination without abnormal findings (principal); E78.2 Mixed hyperlipidemia; R00.2 Palpitations; E55.9 Vitamin D deficiency, unspecified; Z79.899 Other long term (current) drug therapy

== ENCOUNTER → 2024-10-16 | Outpatient (CLI) | payer MEDICARE | LOC: M WHC 12:58 | PROVIDERS: ATTEND Physician Assistant | DX: Z12.31 Encounter for screening mammogram for malignant neoplasm of breast (principal); M81.0 Age-related osteoporosis without current pathological fracture ==

== ENCOUNTER → 2025-01-28 | Outpatient (CLI) | payer MEDICARE ==
[2025-01-28 14:08] LABS: CHOLESTEROL LEVEL 257.0 MG/DL (<200); CHOLESTEROL RISK RATIO 3.67 (<5); LDL CHOLESTEROL 173.7 MG/DL (<100); NON-HDL-C 187.1 MG/DL; TRIGLYCERIDES LEVEL 67.0 MG/DL (<150)
== END ==
LOC: M WUC 08:27
PROVIDERS: ATTEND Physician Assistant
DX: E78.2 Mixed hyperlipidemia (principal)

== ENCOUNTER → 2025-03-06 | Outpatient (CLI) | payer MEDICARE | LOC: M PLAIMG 08:38 | PROVIDERS: ATTEND Physician Assistant | DX: R94.31 Abnormal electrocardiogram [ECG] [EKG] (principal) ==

== ENCOUNTER → 2025-04-22 | Outpatient (CLI) | payer MEDICAID, MEDICARE | LOC: M SLEEP HO 11:28 | PROVIDERS: ATTEND Physician Assistant | DX: I27.20 Pulmonary hypertension, unspecified (principal); G47.33 Obstructive sleep apnea (adult) (pediatric) ==